=== PATIENT | male | born 1960 | race African-American/Black ===

== ENCOUNTER 2021-12-05 23:52 | Emergency (ER) | payer SELFPAY ==
[~2021-12-05 23:52] MED LIST: Iopamidol 370 76% 125 ML VIAL FS ONE; Sodium Chloride 0.9% 100 ML BAG ONE
[2021-12-06] MEDS ORDERED: Nitroglycerin 50 MG/250 ML BOT 250 ML ONE (00:17)
[2021-12-06] MEDS ORDERED: Furosemide 40 MG/4 ML VIAL ONE (00:17)
[2021-12-06] MEDS ORDERED: Sodium Chloride 0.9% 50 ML ONE (00:18)
[2021-12-06] MEDS ORDERED: Sodium Chloride 0.9% 100 ML ONE (00:32)
[2021-12-06] MEDS ORDERED: Cefepime 2 GM VIAL ONE (00:32)
[2021-12-06] MEDS ORDERED: Sodium Chloride 0.9% 250 ML 500 ML ONE (00:33)
[2021-12-06 00:35] LABS: ALT (SGPT) 287 U/L (8-55); AST (SGOT) 83 U/L (5-34); Albumin 3.3 g/dL (3.4-4.8); Alkaline Phosphatase 154 U/L (40-110); Anion Gap 20 mmol/L (10-20); BUN (Urea Nitrogen) 56 mg/dL (8.4-25.7); Bilirubin, Total 0.9 mg/dL (0.2-1.2); Calc. Creatinine Clearance 0 mL/min (70-130); Carbon Dioxide 28 mmol/L (23-31); Chloride 98 mmol/L (98-107); Globulin 3.3 g/dL (2.4-3.5); Glucose 121 mg/dL (80-115); Potassium 4.6 mmol/L (3.5-5.1); Protein, Total 6.6 g/dL (5.8-8.1); Sodium 141 mmol/L (136-145)
[2021-12-06 00:36] LABS: Band 3 % (5-11); Hemoglobin 10.1 g/dL (14.0-18.0); Lymphocytes 4 % (21-51); MDiff Complete? YES; Mean Corpuscular HGB CONC 32.3 g/dL (32.0-36.0); Mean Corpuscular Hemoglobin 30.5 pg (27.0-31.0); Mean Corpuscular Volume 94.3 fL (78.0-98.0); Mean Platelet Volume 8.2 fL (7.4-10.4); Monocytes 4 % (0-10); Neutrophil 89 % (42-75); Platelet Count 133 thou/uL (130-400); RBC Distribution Width 14.7 % (11.5-14.5); White Blood Cell (WBC) Count 17.5 thou/uL (4.8-10.8)
[2021-12-06 01:00] LABS: SARS-CoV-2 NAA Rapid Test Not Detected (NotDetected)
[2021-12-06 01:15] LABS: CKMB 1.2 ng/mL (0-6.6)
[2021-12-06] MEDS ORDERED: Acetylcysteine 20% 200 MG/ML 30 ML VIAL ONE (02:42)
[2021-12-06] MEDS ORDERED: Acetylcysteine (ACETADOTE) 20% 200 MG/ML (30 ML VIAL) ONE (02:43)
== END 2021-12-06 01:53 | disposition short-term general hospital (02) ==
LOC: MADERS 23:52
DX: J18.9 Pneumonia, unspecified organism (principal); I21.4 Non-ST elevation (NSTEMI) myocardial infarction; I16.9 Hypertensive crisis, unspecified; J44.9 Chronic obstructive pulmonary disease, unspecified; I12.0 Hypertensive chronic kidney disease with stage 5 chronic kidney disease or end stage renal disease; N18.6 End stage renal disease; F17.210 Nicotine dependence, cigarettes, uncomplicated; R77.8 Other specified abnormalities of plasma proteins; Z20.822 Contact with and (suspected) exposure to COVID-19
CPT/HCPCS: 71045; 71275; 80053; 82553; 83605; 83880; 84484; 85025; 87040; 93005; 94660; 96365; 96367; 96368; 96375; J0132; J0692; J1940; J1956; J3370; J3490; J7050; Q9967; U0002

== ENCOUNTER 2022-04-05 16:01 | Emergency (ER) | payer MEDICARE ==
[2022-04-05 16:53] LABS: Hemoglobin 9.9 g/dL (14.0-18.0); Lymphocytes 11 % (21-51); MDiff Complete? YES; Mean Corpuscular HGB CONC 30.6 g/dL (32.0-36.0); Mean Corpuscular Hemoglobin 29.6 pg (27.0-31.0); Mean Corpuscular Volume 96.7 fL (78.0-98.0); Mean Platelet Volume 7.1 fL (7.4-10.4); Monocytes 5 % (0-10); Neutrophil 84 % (42-75); Platelet Count 189 thou/uL (130-400); RBC Distribution Width 15.1 % (11.5-14.5); Red Blood Cell (RBC) Count 3.35 mill/uL (4.70-6.10); White Blood Cell (WBC) Count 5.1 thou/uL (4.8-10.8)
[2022-04-05 16:54] LABS: ALT (SGPT) 29 U/L (8-55); AST (SGOT) 30 U/L (5-34); Albumin 3.5 g/dL (3.4-4.8); Alkaline Phosphatase 174 U/L (40-110); Anion Gap 26 mmol/L (10-20); Calc. Creatinine Clearance 0 mL/min (70-130); Calcium 8.2 mg/dL (7.8-10.44); Carbon Dioxide 21 mmol/L (23-31); Chloride 99 mmol/L (98-107); Estimated GFR 3; Globulin 3.4 g/dL (2.4-3.5); Glucose 132 mg/dL (80-115); Potassium 4.4 mmol/L (3.5-5.1); Protein, Total 6.9 g/dL (5.8-8.1); Sodium 142 mmol/L (136-145)
[2022-04-05] MEDS ORDERED: Furosemide 40 MG/4 ML VIAL ONE (17:05)
[2022-04-05] MEDS ORDERED: hydrALAZINE 20 MG/ML VIAL ONE (17:05)
[2022-04-05] MEDS ORDERED: niCARdipine 25 MG/10 ML VIAL ONE (17:05)
[2022-04-05] MEDS ORDERED: Nitroglycerin 2% Ointment 1 INCH/1 GM Packet ONE (17:05)
[2022-04-05 17:19] LABS: BUN (Urea Nitrogen) Greater than 125 mg/dL (8.4-25.7)
[2022-04-05 17:24] LABS: CKMB 8.2 ng/mL (0-6.6)
== END 2022-04-05 18:20 | disposition short-term general hospital (02) ==
LOC: MADERS 16:01
DX: E87.70 Fluid overload, unspecified (principal); R77.8 Other specified abnormalities of plasma proteins; I16.9 Hypertensive crisis, unspecified; I12.0 Hypertensive chronic kidney disease with stage 5 chronic kidney disease or end stage renal disease; N18.6 End stage renal disease; J44.9 Chronic obstructive pulmonary disease, unspecified; F17.210 Nicotine dependence, cigarettes, uncomplicated; Z99.2 Dependence on renal dialysis; Z79.899 Other long term (current) drug therapy
CPT/HCPCS: 36415; 71045; 80053; 82553; 84484; 85025; 93005; 96374; 96375; J0360; J1940